=== PATIENT | female | born 1955 | race Caucasian/White ===

== ENCOUNTER 2018-12-23 11:59 | Emergency (ER) | payer SELFPAY ==
[~2018-12-23] VITALS: Ht 170.2 cm; Wt 120.5 kg
[2018-12-23] MEDS ORDERED: ASPIRIN 325 MG TAB PO STA (12:02)
[2018-12-23 12:03] VITALS: Ht 170.2 cm; Wt 120.5 kg
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
[2018-12-23] MEDS ORDERED: morphine 4 MG/ML VIAL IV STA (12:26)
[2018-12-23] MEDS ORDERED: ONDANSETRON 4 MG INJ IV STA (12:26)
[2018-12-23 13:20] VITALS: BP 160/87; PULSE 71; RESP 17
== END 2018-12-23 13:37 | disposition home or self-care (01) ==
LOC: E/R 11:59
DX: R07.89 Other chest pain (principal); I25.2 Old myocardial infarction; E11.9 Type 2 diabetes mellitus without complications; I10 Essential (primary) hypertension; Z95.1 Presence of aortocoronary bypass graft
CPT/HCPCS: 36415; 71045; 80053; 82550; 82553; 83880; 84484; 85025; 85610; 85730; 93005; 96374; 96375; 99285; J2270; J2405